=== PATIENT | female | born 1985 | race Two or more races ===

== ENCOUNTER 2017-05-21 10:42 | Day surgery (SDC) | payer BC ==
[2017-05-20 13:55] VITALS: BMI 31.3
[~2017-05-21 10:42] MED LIST: LACTATED RINGERS 1,000 ML IV SCH
[2017-05-21 11:17] VITALS: TEMP 98.1
[2017-05-21] MEDS ORDERED: LIDOCAINE 1% 20 ML VIAL (10MG/ML) FOR IV START INTRADERMA ONE (11:20)
[2017-05-21] MEDS ORDERED: LIDOCAINE 1% INJ 10MG/ML (20 ML MDV) ONE (11:58)
[2017-05-21] MEDS ORDERED: PROPOFOL 10 MG/ML 20 ML VIAL IV ONE (11:58)
--- NOTE | 2017-05-21 12:13 | P.PCN ---
Date of Procedure: 05/21/17 Procedure(s) Performed: BRIEF HISTORY: Patient is a 31-year-old pleasant, white female, scheduled for an elective colonoscopy as a part of evaluation of chronic diarrhea for the last 6 months duration. She has stool studies have been negative. PROCEDURE PERFORMED: Colonoscopy with random biopsies. PREOPERATIVE DIAGNOSIS: Diarrhea of 6 months duration.. IV sedation per Anesthesia. PROCEDURE: After informed consent was obtained, the patient, was brought into the endoscopy unit. IV sedation was administered by Anesthesia under continuous monitoring. Digital rectal examination was normal. Initially the Olympus CF- 160 flexible video colonoscope was then inserted in the rectum, gradually advanced into the cecum without any difficulty. Careful examination was performed as the scope was gradually being withdrawn. Ileocecal valve and the appendiceal orifice were visualized and appeared normal. Prep was excellent. Terminal ileum appeared normal. Mucosa of the cecum, ascending colon, transverse colon, descending colon, sigmoid colon, and rectum appeared normal. Random biopsies were done from ascending and descending colon to rule out microscopic/collagenous colitis. Retroflexion was performed in the rectum and no lesions were seen. The patient tolerated the procedure well. IMPRESSION: Normal-appearing colon from rectum to cecum with no evidence of colitis or colorectal neoplasia.. RECOMMENDATIONS: Findings of this examination were discussed with the patient as well as her family. She was advised to follow with the biopsy results. She will be seen in office in 3-4 weeks.
[2017-05-21 12:21] VITALS: RESP 16
[2017-05-21 12:47] VITALS: BP 110/71
[2017-05-21 12:59] VITALS: PULSE 60
[2017-05-21 13:28] LABS: ALT 36 U/L (9-52); AST 36 U/L (14-36); Albumin 3.9 g/dL (3.5-5.0); Alkaline Phosphatase 44 U/L (38-126); Anion Gap 9 mmol/L; Blood Urea Nitrogen 13 mg/dL (7-17); C Reactive Protein 11.2 mg/L (<10.0); Calcium 9.4 mg/dL (8.4-10.2); Carbon Dioxide 24 mmol/L (22-30); Chloride 107 mmol/L (98-107); Glucose 73 mg/dL (74-99); Potassium 4.5 mmol/L (3.5-5.1); Sodium 140 mmol/L (137-145); Total Bilirubin 0.7 mg/dL (0.2-1.3); Total Protein 6.6 g/dL (6.3-8.2)
[2017-05-21 13:30] LABS: HCT 39.3 % (34.0-46.0); MCH 30.6 pg (25.0-35.0); MCV 92.6 fL (80.0-100.0); Mean Platelet Volume 7.3; Platelet Count 276 k/uL (150-450); RBC 4.24 m/uL (3.80-5.40); RDW 12.4 % (11.5-15.5); WBC 8.8 k/uL (3.8-10.6)
[2017-05-21 14:34] LABS: Erythrocyte Sedimentation Rate 13 mm/hr (0-20)
[2017-05-21 20:53] LABS: Gliadin AB IgA, Unit 0.3 U/mL
== END 2017-05-21 13:39 | disposition home or self-care (01) ==
LOC: ORWHC2ENDO 10:42
PROVIDERS: ATTEND Internal Medicine Gastroenterology
DX: K52.9 Noninfective gastroenteritis and colitis, unspecified (principal); E07.9 Disorder of thyroid, unspecified; F32.9 Major depressive disorder, single episode, unspecified; Z79.890 Hormone replacement therapy; Z79.899 Other long term (current) drug therapy; Z88.5 Allergy status to narcotic agent
CPT/HCPCS: 81025; 88305; 80053; 85652; 85027; 86140; 83516 ×4; 45380; J2001; J2704

== ENCOUNTER → 2018-05-10 | Outpatient (CLI) | payer BC ==
[2018-05-10 14:02] LABS: Basophils # (A) 0.1 k/uL (0-0.2); Basophils % (A) 1 %; Eosinophils # (A) 0.2 k/uL (0-0.7); Eosinophils % (A) 2 %; HCT 44.2 % (34.0-46.0); HGB 13.9 gm/dL (11.4-16.0); Lymphocytes # (A) 3.5 k/uL (1.0-4.8); Lymphocytes % (A) 37 %; MCH 30.1 pg (25.0-35.0); MCHC 31.5 g/dL (31.0-37.0); MCV 95.5 fL (80.0-100.0); Mean Platelet Volume 6.2; Monocytes # (A) 0.3 k/uL (0-1.0); Monocytes % (A) 3 %; Neutrophils # (A) 5.4 k/uL (1.3-7.7); Neutrophils % (A) 57 %; Platelet Count 322 k/uL (150-450); RBC 4.63 m/uL (3.80-5.40); RDW 12.4 % (11.5-15.5); WBC 9.6 k/uL (3.8-10.6)
[2018-05-10 19:55] LABS: Albumin 4.6 g/dL (3.80-4.90); Albumin/Globulin Ratio 2.19 (1.60-3.17); Anion Gap 7.8 mmol/L (4.00-12.00); Calcium 9.5 mg/dL (8.7-10.3); Carbon Dioxide 24.2 mmol/L (21.6-31.8); Globulin 2.1 g/dL (1.6-3.3); LDL Cholesterol,Calculated 113.2 mg/dL (0.0-131.0); Potassium 4.1 mmol/L (3.5-5.5); Total Bilirubin 0.5 mg/dL (0.3-1.2); Total Protein 6.7 g/dL (6.2-8.2); VLDL Calculation 31.8 mg/dL (5.00-40.00)
== END ==
LOC: LABWHC1 12:32
PROVIDERS: ATTEND Family Medicine
DX: Z00.00 Encounter for general adult medical examination without abnormal findings (principal)
CPT/HCPCS: 36415; 80053; 80061; 84443; 85025

== ENCOUNTER 2018-10-07 22:15 | Emergency (ER) | payer OTHER, BC ==
[2018-10-07 22:27] VITALS: BP 105/59; PULSE 74; RESP 16; TEMP 98.4
--- NOTE | 2018-10-07 22:53 | XR ---
EXAM: XR Right Knee, 3 views CLINICAL HISTORY: ITS.REASON XR Reason: fall TECHNIQUE: Three views of the right knee. COMPARISON: No relevant prior studies available. FINDINGS: Bones/joints: No acute fracture. Soft tissues: No radiopaque foreign body. IMPRESSION: No acute fracture.
[2018-10-07] MEDS ORDERED: ACETAMINOPHEN TAB 325 MG TAB PO STA (23:05)
--- NOTE | 2018-10-07 23:07 | ED ---
Lower Extremity Injury HPI - General Chief Complaint: Extremity Injury, Lower Stated Complaint: Fall, knee pain, [facility] Time Seen by Provider: 10/07/18 22:30 Source: patient Mode of arrival: wheelchair Limitations: no limitations - History of Present Illness Initial Comments: 33-year-old female who is currently 20 weeks presenting today for chief complaint of right knee pain after falling at work. Patient states that she slipped on a wet floor at work. She states that she hit the anterior aspect of her knee. She states that there is no bruising or worsen if can swelling. Patient states the pain increases with flexing and extending the knee. Patient states she is able to walk, this increases the pain. Patient denies any pain at the hip or ankle. Patient denies any foot pain. Patient states that she caught herself she did not hit her abdomen. Denies any abdominal pain. Patient denies any pain of the wrist bilaterally or upper extremities. Remaining review of system negative no other complaints upon arrival patient appears well no signs acute distress ambulatory. - Related Data Home Medications Medication Instructions Recorded Confirmed Levothyroxine Sodium [Synthroid] 75 mcg PO DAILY 11/11/14 05/20/17 Pnv,Calcium 72/Iron/Folic Acid 1 each PO DAILY 11/11/14 05/20/17 [ Plus Tablet] Citalopram Hydrobromide 20 mg PO DAILY 05/20/17 05/20/17 [Citalopram HBr] Allergies Allergy/AdvReac Type Severity Reaction Status Date / Time butorphanol [From Stadol] Allergy Unknown Verified 10/07/18 22:27 Review of Systems ROS Statement: Those systems with pertinent positive or pertinent negative responses have been documented in the HPI. ROS Other: All systems not noted in ROS Statement are negative. Past Medical History Past Medical History: GERD/Reflux, Hyperlipidemia, Thyroid Disorder Additional Past Medical History / Comment(s): migraines, refux during , diarrhea, hx kidney stones during pregnacy History of Any Multi-Drug Resistant Organisms: None Reported Past Surgical History: Breast Surgery, Section Additional Past Surgical History / Comment(s): rodrigue breast reduction, carpal tunnel surgery Past Anesthesia/Blood Transfusion Reactions: Motion Sickness Additional Past Anesthesia/Blood Transfusion Reaction / Comment(s): had epidural for C/S- "had cholinergic episode requiring atropine during epidural". was unresponsive and slept right through labor. possibly from stadol per pt. Past Psychological History: Depression Smoking Status: Never smoker Past Alcohol Use History: None Reported Past Drug Use History: None Reported - Past Family History Mother Family Medical History: No Reported History Father Family Medical History: Cancer, Deep Vein Thrombosis (DVT), Myocardial Infarction ([place]) Additional Family Medical History / Comment(s): . General Exam - General Exam Comments Initial Comments: General: The patient is awake and alert, in no distress, and does not appear acutely ill. Eye: Pupils are equal, round and reactive to light, extra-ocular movements are intact. No nystagmus. There is normal conjunctiva bilaterally. No signs of icterus. No raccoon or Campos sign appreciated. Cardiovascular: There is a regular rate and rhythm. No murmur, rub or gallop is appreciated. Respiratory: Lungs are clear to auscultation, respirations are non-labored, breath sounds are equal. No wheezes, stridor, rales, or rhonchi. Musculoskeletal: Upon inspection of the knees bilaterally. There is no abrasions or lacerations. There is mild soft tissue swelling over the anterior right knee. Otherwise patient has no posterior tenderness. Only tender to palpation over the anterior knee. No noted gross deformity. Strength preserved at the knee joint hip and ankles bilaterally equal sensation intact the proximal distal to injury site. Dorsalis pedis pulses are equal bilaterally +2. No evidence of footdrop. Neurological: A&O x 3. CN II-XII intact grossly, There are no obvious motor or sensory deficits. Coordination appears grossly intact. Speech is normal. Skin: Skin is warm and dry and no rashes or lesions are noted. Psychiatric: Cooperative, appropriate mood & affect, normal judgment. Limitations: no limitations Course Vital Signs 10/07/18 22:21 Temperature 98.4 F Pulse Rate 74 Respiratory 16 Rate Blood Pressure 105/59 O2 Sat by Pulse 98 Oximetry Medical Decision Making - Medical Decision Making Very pleasant 33-year-old female. 20 weeks . Imaging studies obtained of right knee patient was shielded. No acute osseous process noted. Patient has intact extensor mechanism. No neurovascular deficits. No noted laxity. Patient appears well. No other complaints or injuries. Denies abdominal pain. No abdominal trauma. At this time feel patient is stable for discharge with outpatient primary care follow-up. If knee pain persists or she feels laxity in the knee joint I recommended orthopedic evaluation. Otherwise at this time after reviewing imaging studies of attending provider with the patient is stable for discharge. Patient is placed in an Domenic bandage given Rice instructions and return parameters were discussed and patient was discharged ambulatory appearing well Disposition Clinical Impression: Right anterior knee pain, Fall Disposition: HOME SELF-CARE Condition: Good Instructions (If sedation given, give patient instructions): Knee Pain (ED), R.I.C.E. Treatment (ED) Additional Instructions: Please use medication as discussed. Please follow-up with family doctor in the next 2 days. Rest, ice and elevate knee as discussed. Please return to emergency room if the symptoms increase or worsen or for any other concerns. Is patient prescribed a controlled substance at d/c from ED?: No Referrals: Sandy Felton MD [Primary Care Provider] - 1-2 days Time of Disposition: 23:06
== END 2018-10-07 23:35 | disposition home or self-care (01) ==
LOC: EC 22:15
DX: O99.89 Other specified diseases and conditions complicating pregnancy, childbirth and the puerperium (principal); M25.561 Pain in right knee; O99.282 Endocrine, nutritional and metabolic diseases complicating pregnancy, second trimester; E07.9 Disorder of thyroid, unspecified; O99.342 Other mental disorders complicating pregnancy, second trimester; F32.9 Major depressive disorder, single episode, unspecified; Z79.890 Hormone replacement therapy; Z79.899 Other long term (current) drug therapy; Z88.5 Allergy status to narcotic agent; W01.0XXA Fall on same level from slipping, tripping and stumbling without subsequent striking against object, initial encounter; Y92.69 Other specified industrial and construction area as the place of occurrence of the external cause; Y99.0 Civilian activity done for income or pay; Z3A.20 20 weeks gestation of pregnancy
CPT/HCPCS: 99283

== ENCOUNTER → 2018-12-30 | Outpatient (CLI) | payer BC ==
--- NOTE | 2019-01-07 13:54 | HM ---
HOLTER MONITOR REPORT A 24 HOUR HOLTER REPORT: Patient in her diary had 3 episodes of palpitations that she documented at 9:32 am, 10:30 am and 10:38 am. Predominant rhythm was sinus with average heart rate of 90 beats per minute. There is no evidence of any significant SVT, VT, or bradyarrhythmia. At the time she complained of having palpitation, she was in a sinus rhythm and sinus tachycardia. No significant arrhythmia was detected when she felt palpitations. There was no bradyarrhythmia of significance. IMPRESSION: Predominant sinus. There was no correlation of any arrhythmia when she felt palpitations on three occasions. Premature atrial contractions and premature ventricular contractions are noted very rarely and very infrequently. There is no evidence to suggest any bradyarrhythmia. MMODL / IJN: [id number] /
== END | disposition home or self-care (01) ==
LOC: RADECHMAIN 12:17
PROVIDERS: ATTEND Obstetrics & Gynecology
DX: O99.412 Diseases of the circulatory system complicating pregnancy, second trimester (principal); R00.0 Tachycardia, unspecified
CPT/HCPCS: 93225; 93226

== ENCOUNTER 2019-01-03 18:17 | Emergency (ER) | payer BC, OTHER ==
[2019-01-03 18:43] VITALS: BP 127/67; PULSE 95; RESP 18; TEMP 98.6
[2019-01-03] MEDS ORDERED: ACETAMINOPHEN TAB 325 MG TAB PO STA (18:51)
[2019-01-03] MEDS ORDERED: LIDOCAINE 1% INJ 10MG/ML (20 ML MDV) SQ ONE (18:51)
[2019-01-03] MEDS ORDERED: AMOXIC-POT CLAV 875MG STARTER 2 EACH TABLET PO STA (18:51)
--- NOTE | 2019-01-03 18:59 | ED ---
Animal Bite HPI - General Chief Complaint: Animal Bite Stated Complaint: Dog bite on face/33 wks Time Seen by Provider: 01/03/19 18:45 Source: patient, RN notes reviewed Mode of arrival: ambulatory Limitations: no limitations - History of Present Illness Initial Comments: 33-year-old female presents emergency Department chief complaint of dog bite. 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 Patient states that the dog she was examining her in the face. Patient has some puncture wounds to her nose, ear lip laceration the upper aspect, chin laceration. Patient states her tetanus is updated one month ago. Patient states she is currently 33 weeks . Patient denies any ALLERGIES to antibiotics. - Related Data Home Medications Medication Instructions Recorded Confirmed Levothyroxine Sodium [Synthroid] 75 mcg PO DAILY 11/11/14 05/20/17 Pnv,Calcium 72/Iron/Folic Acid 1 each PO DAILY 11/11/14 05/20/17 [ Plus Tablet] Citalopram Hydrobromide 20 mg PO DAILY 05/20/17 05/20/17 [Citalopram HBr] Previous Rx's Medication Instructions Recorded Amoxicillin/Potassium Clav 1 tab PO Q12HR #20 tab 01/03/19 [Augmentin 875-125 Tablet] Allergies Allergy/AdvReac Type Severity Reaction Status Date / Time butorphanol [From Stadol] Allergy Unknown Verified 01/03/19 18:43 Review of Systems ROS Statement: Those systems with pertinent positive or pertinent negative responses have been documented in the HPI. ROS Other: All systems not noted in ROS Statement are negative. Past Medical History Past Medical History: GERD/Reflux, Hyperlipidemia, Thyroid Disorder Additional Past Medical History / Comment(s): migraines, refux during , diarrhea, hx kidney stones during pregnacy History of Any Multi-Drug Resistant Organisms: None Reported Past Surgical History: Breast Surgery, Section Additional Past Surgical History / Comment(s): rodrigue breast reduction, carpal tunnel surgery Past Anesthesia/Blood Transfusion Reactions: Motion Sickness Additional Past Anesthesia/Blood Transfusion Reaction / Comment(s): had epidural for C/S- "had cholinergic episode requiring atropine during epidural". was unresponsive and slept right through labor. possibly from stadol per pt. Past Psychological History: Depression Smoking Status: Never smoker Past Alcohol Use History: None Reported Past Drug Use History: None Reported - Past Family History Mother Family Medical History: No Reported History Father Family Medical History: Cancer, Deep Vein Thrombosis (DVT), Myocardial Infarction ([place]) Additional Family Medical History / Comment(s): . General Exam Limitations: no limitations General appearance: alert, in no apparent distress Head exam: Present: atraumatic, normocephalic, normal inspection Eye exam: Present: normal appearance, PERRL, EOMI. Absent: scleral icterus, conjunctival injection, periorbital swelling ENT exam: Present: mucous membranes moist, TM's normal bilaterally, normal external ear exam, other (Nasal bridge there are multiple puncture wounds with no active bleeding, chin there is a 1 cm semicircular laceration). Absent: normal exam, normal oropharynx (Upper inner aspect of the lip there is an irregular 1 cm laceration) Neck exam: Present: normal inspection, full ROM. Absent: tenderness, meningismus, lymphadenopathy Respiratory exam: Present: normal lung sounds bilaterally. Absent: respiratory distress, wheezes, rales, rhonchi, stridor Cardiovascular Exam: Present: regular rate, normal rhythm, normal heart sounds. Absent: systolic murmur, diastolic murmur, rubs, gallop, clicks Neurological exam: Present: alert, oriented X3, CN II-XII intact Skin exam: Present: warm, dry, intact, normal color. Absent: rash Course Vital Signs 01/03/19 18:37 Temperature 98.6 F Pulse Rate 95 Respiratory 18 Rate Blood Pressure 127/67 O2 Sat by Pulse 98 Oximetry Procedures - Laceration Laceration #1 Consent Obtained: verbal consent Indication: laceration Site: lip Size (cm): 2 Description: stellate, irregular Anesthetic Used: lidocaine 1% Anesthesia Technique: local infiltration Amount (mls): 2 Pre-repair: wound explored, irrigated extensively Type of Sutures: other (Rapid repid) Size of Sutures: 5-0 Technique: simple, interrupted Patient Tolerated Procedure: well, no complications Laceration #2 Description: stellate, irregular Size of Sutures: other (exofin dermal glue) Medical Decision Making - Medical Decision Making Patient's lacerations were cleaned, closed with sutures in the upper lip, Zofran on the chin patient was discharged with Augmentin. Disposition Clinical Impression: Dog bite, Facial laceration Disposition: HOME SELF-CARE Instructions (If sedation given, give patient instructions): Animal Bite (ED) Additional Instructions: Please return to the Emergency Department if symptoms worsen or any other concerns. Prescriptions: Amoxicillin/Potassium Clav [Augmentin 875-125 Tablet] 1 tab PO Q12HR #20 tab Is patient prescribed a controlled substance at d/c from ED?: No Referrals: Sandy Felton MD [Primary Care Provider] - 1-2 days Time of Disposition: 20:07
[2019-01-03] MEDS ORDERED: TOPICAL SKIN ADHESIVE 1 EACH AMP TOPICAL ONE (19:04)
[2019-01-03] MEDS ORDERED: LIDOCAINE 2% GEL 30 ML TUBE TOPICAL ONE (19:08)
== END 2019-01-03 20:20 | disposition home or self-care (01) ==
LOC: EC 18:17
DX: O9A.213 Injury, poisoning and certain other consequences of external causes complicating pregnancy, third trimester (principal); S01.25XA Open bite of nose, initial encounter; S01.551A Open bite of lip, initial encounter; S01.85XA Open bite of other part of head, initial encounter; O99.283 Endocrine, nutritional and metabolic diseases complicating pregnancy, third trimester; E07.9 Disorder of thyroid, unspecified; O99.343 Other mental disorders complicating pregnancy, third trimester; F32.9 Major depressive disorder, single episode, unspecified; Z88.5 Allergy status to narcotic agent; Z79.890 Hormone replacement therapy; Z79.899 Other long term (current) drug therapy; Z98.890 Other specified postprocedural states; Z3A.33 33 weeks gestation of pregnancy; W54.0XXA Bitten by dog, initial encounter; Y93.89 Activity, other specified; Y92.69 Other specified industrial and construction area as the place of occurrence of the external cause; Y99.0 Civilian activity done for income or pay
CPT/HCPCS: 99283; 12011; J2001

== ENCOUNTER 2019-01-06 14:21 | Emergency (ER) | payer BC, OTHER ==
[2019-01-06 14:29] VITALS: BP 130/78; PULSE 94; RESP 18; TEMP 97.8
--- NOTE | 2019-01-06 15:00 | ED ---
General Adult HPI - General Chief complaint: Extremity Injury, Upper Stated complaint: finger injury-[facility] Time Seen by Provider: 01/06/19 14:29 Source: patient, RN notes reviewed, old records reviewed Mode of arrival: ambulatory Limitations: no limitations - History of Present Illness Initial comments: 33-year-old female patient presents to the chief complaint of hand pain. Patient was seen approximately 3 days ago for a dog bite. Patient was bitten in the face. These wounds were reportedly irrigated, closed. Patient not having any complaints regarding the bite. Patient does report that she is now having pain at the distal aspect of the fourth digit on her right hand. Patient reports that during the reported dog bite she fell to the ground an outstretched arm. Patient has full range of motion reports some swelling at the DIP joint. Also requests recheck of wounds. Denies any erythema, drainage, systemic complaints. Systemic: Pt denies fatigue, fever/chills, rash. Pt denies weakness, night sweats, weight loss. Neuro: Pt denies headache, visual disturbances, syncope or pre-syncope. HEENT: Pt denies ocular discharge or irritation, otalgia, rhinorrhea, pharyngitis or notable lymphadenopathy. Cardiopulmonary: Pt denies chest pain, SOB, heart palpitations, dyspnea on exertion. Abdominal/GI: Pt denies abdominal pain, n/v/d. : Pt denies dysuria, burning w/ urination, frequency/urgency. Denies new onset urinary or bowel incontinence. MSK: Pt denies myalgia, loss of strength or function in extremities. Neuro: Pt denies new onset weakness, paresthesias. - Related Data Home Medications Medication Instructions Recorded Confirmed Levothyroxine Sodium [Synthroid] 75 mcg PO DAILY 11/11/14 01/06/19 Pnv,Calcium 72/Iron/Folic Acid 1 tab PO HS 11/11/14 01/06/19 [ Plus Tablet] Acetaminophen Tab [Tylenol Tab] 500 mg PO BID 01/06/19 01/06/19 Ferrous Sulfate [Feosol] 325 mg PO HS 01/06/19 01/06/19 Sertraline [Zoloft] 150 mg PO DAILY 01/06/19 01/06/19 Previous Rx's Medication Instructions Recorded Amoxicillin/Potassium Clav 1 tab PO Q12HR #20 tab 01/03/19 [Augmentin 875-125 Tablet] Allergies Allergy/AdvReac Type Severity Reaction Status Date / Time butorphanol [From Stadol] Allergy PASSED OUT Verified 01/06/19 14:34 Review of Systems ROS Statement: Those systems with pertinent positive or pertinent negative responses have been documented in the HPI. ROS Other: All systems not noted in ROS Statement are negative. Past Medical History Past Medical History: GERD/Reflux, Hyperlipidemia, Thyroid Disorder Additional Past Medical History / Comment(s): migraines, refux during , diarrhea, hx kidney stones during pregnacy History of Any Multi-Drug Resistant Organisms: None Reported Past Surgical History: Breast Surgery, Section Additional Past Surgical History / Comment(s): rodrigue breast reduction, carpal tunnel surgery Past Anesthesia/Blood Transfusion Reactions: Motion Sickness Additional Past Anesthesia/Blood Transfusion Reaction / Comment(s): had epidural for C/S- "had cholinergic episode requiring atropine during epidural". was unresponsive and slept right through labor. possibly from stadol per pt. Past Psychological History: Depression Smoking Status: Never smoker Past Alcohol Use History: None Reported Past Drug Use History: None Reported - Past Family History Mother Family Medical History: No Reported History Father Family Medical History: Cancer, Deep Vein Thrombosis (DVT), Myocardial Infarction ([place]) Additional Family Medical History / Comment(s): . General Exam Limitations: no limitations Course Vital Signs 01/06/19 01/06/19 14:25 15:11 Temperature 97.8 F Pulse Rate 94 Respiratory 18 18 Rate Blood Pressure 130/78 O2 Sat by Pulse 98 Oximetry Medical Decision Making - Medical Decision Making 33-year-old female patient presents ED chief complaint of recheck of dog bite wound as well as hand pain in the hand. Pt VSS, afebrile. Physical exam displayed: Fourth DIP joint of right hand mildly tender and swollen. No erythema. Range of motion is intact of all digits MCP PIP/DIP joints. Sensation intact. Capillary refill less than 2 seconds. No snuffbox tenderness. Healing bites noted on lips, anterior nose region. Non- erythematous, no discharge, no signs of infection, no streaking. Plain film of hand is negative. Patient placed in a straight finger splint. Patient dischar ged with outpatient follow-up with primary care provider next week. Will return here immediately if signs of infection develop. If condition worsens in any way. Case discussed with Dr. Kumar. Disposition Clinical Impression: Encounter for wound re-check, Finger pain, right Disposition: HOME SELF-CARE Condition: Stable Instructions (If sedation given, give patient instructions): Finger Sprain (ED) Additional Instructions: Follow-up with primary care provider next week. Follow up with orthopedic consult of symptoms and hand persists. Monitor for signs and symptoms of infection of dog bites. If any of these develop return immediately to ER. Please monitor for signs and symptoms of infection including: redness, warmth, drainage, discharge. Please return to ED if these signs or symptoms occur, new signs or symptoms develop or if condition worsens in anyway. Is patient prescribed a controlled substance at d/c from ED?: No Referrals: Sandy Felton MD [Primary Care Provider] - 1-2 days Juan C Appiah DO [Medical Doctor] - 1-2 days
--- NOTE | 2019-01-06 15:01 | XR ---
EXAMINATION TYPE: XR hand complete RT DATE OF EXAM: 01/06/2019 CLINICAL HISTORY: pain TECHNIQUE: Frontal, lateral and oblique images of the right hand are obtained. COMPARISON: None. FINDINGS: There is no acute fracture/dislocation evident. The joint spaces appear within normal limi ts. The overlying soft tissue appears unremarkable. IMPRESSION: There is no acute fracture or dislocation ICD 10 NO FRACTURE, INITIAL EVALUATION
--- NOTE | 2019-01-06 15:28 | ED ---
Medical Decision Making - Medical Decision Making Constitutional: NAD, AOX3, Pt has pleasant affect. HEENT: NC/AT, trachea midline, neck supple, no lymphadenopathy. Posterior pharynx non erythematous, without exudates. External ears appear normal, without discharge. Mucous membranes moist. Eyes PERRLA, EOM intact. There is no scleral icterus. No pallor noted. Cardiopulmonary: RRR, no murmurs, rubs or gallops, no JVD noted. Lungs CTAB in anterior and posterior [place]. No peripheral edema. Abdominal exam: Abdomen soft and non-distended. Abdomen non-tender to palpation in all 4 quadrants. Bowel sounds active in LLQ. No hepatosplenomegaly. No ecchymosis Neuro: CN II-XII grossly intact. No nuchal rigidity. No raccon eyes, no gilmore sign, no hemotympanum. No cervical spinal tenderness. MSK: Fourth DIP joint of right hand mildly tender and swollen. No erythema. Range of motion is intact of all digits MCP PIP/DIP joints. Sensation intact. Capillary refill less than 2 seconds. No snuffbox tenderness. No posterior calf tenderness bilaterally, homans sign negative bilaterally. Posterior tibialis and radial pulse +2 bilaterally. Sensation intact in upper and lower extremities. Full active ROM in upper and lower extremities, 5/5 stregnth. Derm: Healing bites noted on lips, anterior nose region. Non-erythematous, no discharge, no signs of infection, no streaking. Disposition Clinical Impression: Encounter for wound re-check, Finger pain, right Disposition: HOME SELF-CARE Condition: Stable Instructions (If sedation given, give patient instructions): Finger Sprain (ED) Additional Instructions: Follow-up with primary care provider next week. Follow up with orthopedic consult of symptoms and hand persists. Monitor for signs and symptoms of infection of dog bites. If any of these develop return immediately to ER. Please monitor for signs and symptoms of infection including: redness, warmth, drainage, discharge. Please return to ED if these signs or symptoms occur, new signs or symptoms develop or if condition worsens in anyway. Is patient prescribed a controlled substance at d/c from ED?: No Referrals: Sandy Felton MD [Primary Care Provider] - 1-2 days Juan C Appiah DO [Medical Doctor] - 1-2 days
== END 2019-01-06 15:29 | disposition home or self-care (01) ==
LOC: EC 14:21
DX: S01.551D Open bite of lip, subsequent encounter (principal); S01.25XD Open bite of nose, subsequent encounter; M79.644 Pain in right finger(s); M79.89 Other specified soft tissue disorders; E07.9 Disorder of thyroid, unspecified; F32.9 Major depressive disorder, single episode, unspecified; Z88.5 Allergy status to narcotic agent; Z79.890 Hormone replacement therapy; Z79.891 Long term (current) use of opiate analgesic; Z79.899 Other long term (current) drug therapy; W54.0XXD Bitten by dog, subsequent encounter; W18.39XA Other fall on same level, initial encounter; Y92.69 Other specified industrial and construction area as the place of occurrence of the external cause; Y99.0 Civilian activity done for income or pay
CPT/HCPCS: 99284

== ENCOUNTER 2019-02-17 10:17 | Inpatient (IN) | payer BC ==
[2019-02-16 09:15] VITALS: BMI 31.3
[2019-02-17] MEDS ORDERED: CITRIC ACID-SODIUM CITRATE 15 ML CUP PO ONE (10:30)
[2019-02-17] MEDS: LACTATED RINGERS 1,000 ML IV SCH (11:13)
[2019-02-17 11:19] LABS: Glucose,Whole Blood 73 mg/dL (75-99)
[2019-02-17 11:39] LABS: Basophils % (A) 0 %; Eosinophils # (A) 0.1 k/uL (0-0.7); Eosinophils % (A) 1 %; HCT 37.4 % (34.0-46.0); HGB 12.2 gm/dL (11.4-16.0); Lymphocytes # (A) 2.1 k/uL (1.0-4.8); Lymphocytes % (A) 24 %; MCH 30.7 pg (25.0-35.0); MCHC 32.7 g/dL (31.0-37.0); MCV 93.8 fL (80.0-100.0); Monocytes # (A) 0.3 k/uL (0-1.0); Monocytes % (A) 4 %; Neutrophils # (A) 6.2 k/uL (1.3-7.7); Neutrophils % (A) 70 %; Platelet Count 213 k/uL (150-450); RBC 3.99 m/uL (3.80-5.40); RDW 15.1 % (11.5-15.5); WBC 8.8 k/uL (3.8-10.6)
[2019-02-17] MEDS ORDERED: KETOROLAC 30 MG/ML 1 ML VIAL ONE (12:01)
[2019-02-17] MEDS ORDERED: ePHEDrine SULFATE/0.9% NACL/PF 50 MG/5 ML SYRINGE IV ONE (12:01)
[2019-02-17] MEDS ORDERED: .MORPHINE SULFATE (INJ) 10 MG/ML SYRINGE ONE (12:01)
[2019-02-17] MEDS ORDERED: ONDANSETRON 4 MG/2 ML VIAL ONE (12:01)
[2019-02-17] MEDS ORDERED: MORPHINE SULFATE (PF) 0.3 MG/0.3 ML SYR ONE (12:01)
[2019-02-17] MEDS ORDERED: LACTATED RINGERS 1,000 ML BAG IV ONE (12:01)
[2019-02-17] MEDS ORDERED: OXYTOCIN 10 UNIT/ML 1 ML VIAL ONE (12:01)
--- NOTE | 2019-02-17 12:03 | P.HPOB ---
History of Present Illness H&P Date: 02/17/19 Chief Complaint: 39+ weeks, previous section, requesting repeat The patient is a 33-year-old 2 para 1001 who presents to the hospital at 39-2/7 weeks for repeat low transverse section. Her first resulted in a primary low-transverse section for arrest of dilation and descent. Her procedure was complicated by either a medication reaction or anesthetic reaction and was presumed to be a college anergic crisis which resolved with medications. This has been relatively uncomplicated though she has been diagnosed as a gestational diabetic and has had relatively reasonable blood sugar control. There were no other complications. Group B strep status is negative. Obstetrical history: 2 para 1001 with 1 previous section as noted above, complications as noted above. Current statistics are listed in history present illness. EDC is 02/22/2019 established by a early ultrasound. Laboratory workup demonstrates a blood type of A+ with a negative antibody screen. Remainder of the laboratory workup was within normal limits. One hour Glucola was elevated and followed by an abnormal 3 hour glucose tolerance test. Group B strep status is negative. Gynecologic history: Unremarkable with no history of any infections to include STDs. Review of Systems Review of systems is confined to history of present illness. Past Medical History Past Medical History: GERD/Reflux, Hyperlipidemia, Thyroid Disorder Additional Past Medical History / Comment(s): migraines, refux during , diarrhea, hx kidney stones during pregnacy History of Any Multi-Drug Resistant Organisms: None Reported Past Surgical History: Breast Surgery, Section, Orthopedic Surgery Additional Past Surgical History / Comment(s): rodrigue breast reduction, carpal tunnel surgery-BILAT Past Anesthesia/Blood Transfusion Reactions: Motion Sickness Additional Past Anesthesia/Blood Transfusion Reaction / Comment(s): had epidural for C/S- "had cholinergic episode requiring atropine during epidural". was unresponsive and slept right through labor. possibly from stadol per pt. Past Psychological History: Depression Additional Psychological History / Comment(s): post Smoking Status: Never smoker Past Alcohol Use History: None Reported Past Drug Use History: None Reported - Past Family History Mother Family Medical History: No Reported History Father Family Medical History: Cancer, Deep Vein Thrombosis (DVT), Myocardial Infarction ([place]) Additional Family Medical History / Comment(s): . Medications and Allergies Home Medications Medication Instructions Recorded Confirmed Type Levothyroxine Sodium [Synthroid] 75 mcg PO DAILY 11/11/14 02/16/19 History Pnv,Calcium 72/Iron/Folic Acid 1 tab PO HS 11/11/14 02/16/19 History [ Plus Tablet] Ferrous Sulfate [Feosol] 325 mg PO HS 01/06/19 02/16/19 History Sertraline [Zoloft] 150 mg PO DAILY 01/06/19 02/16/19 History Allergies Allergy/AdvReac Type Severity Reaction Status Date / Time butorphanol [From Stadol] Allergy PASSED OUT Verified 02/16/19 09:09 Exam Vital Signs Temp Pulse Resp BP Pulse Ox 02/17/19 10:29 97.7 F 77 16 125/62 99 Intake and Output 02/16/19 02/17/19 02/17/19 22:59 06:59 14:59 Other: Weight 72.575 kg In general, this is a well-developed, well-nourished female in no acute distress. Her heart has a regular rhythm and rate without murmur. Her lungs are clear to auscultation bilaterally in all [place]. Her abdomen is gravid, nondistended, has normal active bowel sounds, is soft, nontender, and without any palpable masses aside from uterine fundus. Her extremities are without any cyanosis, clubbing, or significant edema and are nontender to palpation bilaterally. Digital cervical examination is deferred. Results Result Diagrams: 02/17/19 11:04 Abnormal Lab Results - Last 24 Hours (Table) 02/17/19 Range/Units 11:18 POC Glucose (mg/dL) 73 L (75-99) mg/dL Assessment and Plan (1) Previous section Current Visit: Yes Status: Acute Code(s): Z98.891 - HISTORY OF UTERINE SCAR FROM PREVIOUS SURGERY SNOMED Code(s): 190551169 (2) Term Current Visit: Yes Status: Acute Code(s): Z34.80 - ENCOUNTER FOR SUPRVSN OF NORMAL , UNSP TRIMESTER SNOMED Code(s): 17989591 Plan: The patient is to be taken the operating room for repeat low transverse section. The risks and complications of the procedure have been thoroughly discussed and she has understood and agreed to proceed. Anesthesia has been made aware of the previous complications and is prepared to manage similar happenings.
[2019-02-17] MEDS ORDERED: NALOXONE 0.4 MG/ML 1 ML VIAL IV PRN (12:59)
[2019-02-17] MEDS ORDERED: KETOROLAC 30 MG/ML 1 ML VIAL IVP PRN (12:59)
[2019-02-17] MEDS ORDERED: HYDROmorphone 0.5 MG/0.5 ML SYRINGE IVP PRN (12:59)
[2019-02-17] MEDS ORDERED: diphenhydrAMINE 50 MG/ML 1 ML VIAL IVP PRN ×3 (12:59→13:00)
[2019-02-17] MEDS ORDERED: ONDANSETRON 4 MG/2 ML VIAL IVP PRN (12:59)
[2019-02-17] MEDS ORDERED: METOCLOPRAMIDE 5 MG/ML 2 ML VIAL IVP PRN (13:00)
[2019-02-17] MEDS ORDERED: diphenhydrAMINE 50 MG CAP PO PRN (13:00)
[2019-02-17] MEDS ORDERED: ZOLPIDEM 5 MG TAB PO PRN (13:00)
[2019-02-17] MEDS ORDERED: HYDROcodone/APAP 5-325MG 1 EACH TAB PO PRN (13:00)
[2019-02-17] MEDS ORDERED: diphenhydrAMINE 25 MG CAP PO PRN (13:00)
[2019-02-17] MEDS ORDERED: LANOLIN CREAM 5 GM TUBE TOPICAL PRN (13:00)
[2019-02-17] MEDS ORDERED: OXYTOCIN 20 UNITS/1000 ML NS 1,000 ML IV SCH (13:00)
[2019-02-17] MEDS ORDERED: HYDROcodone/APAP 7.5-325MG 1 EACH TAB PO PRN (13:00)
--- NOTE | 2019-02-17 13:09 | P.OP ---
Date of Procedure: 02/17/19 Preoperative Diagnosis: #1. Previous section, requesting repeat #2. Gestational diabetes Postoperative Diagnosis: Same Procedure(s) Performed: #1. Repeat low transverse section Anesthesia: spinal Surgeon: Manish Smith Water Mangle Tender #1: Martina He Estimated Blood Loss (ml): 500 IV fluids (ml): 1,100 Urine output (ml): 100 Pathology: other (Placenta) Condition: stable Disposition: floor Operative Findings: Preoperatively, the patient been thoroughly counseled regarding the procedure and agreed to proceed. She was taken the operating room where she was delivered of a viable 7 lbs. 12 oz. baby boy with Apgars of 3 at 1 minute, 6 at 5 minutes, and 7 at 10 minutes. The was delivered in the occiput anterior position with the help of a mighty Vac vacuum secondary to the angle of the pelvis and the head floating well above the pelvis. cord blood was collected per routine with the kit provided by the patient. The placenta was delivered manually, intact, and grossly normal with a grossly normal three-vessel cord. The uterus, tubes, and ovaries were entirely normal to inspection. Description of Procedure: The patient was prepped and draped in usual fashion after spinal anesthesia was administered by the anesthesiologist. A Pfannenstiel incision was made through pre-existing scar and extended into the abdominal cavity without difficulty. There was only a mild amount of scarring at the level of the fascia and subcutaneous tissues. The bladder peritoneum was elevated, incised, and reflected distally. A 2 cm incision was made in the transverse plane of the lower uterine segment to enter the uterus at which time clear fluid was noted. There was a moderate to significant amount of fluid. The incision was extended in both directions using the bandage scissors. The head was encountered floating in the pelvis and attempts to deliver the head in standard fashion were very difficult secondary to the head floating and the angle the pelvis. As result, a mighty Vac vacuum was affixed to the occiput of the at which time the head was able to be delivered up and through the incision where the nose and mouth were thoroughly suctioned. Remainder of the infant was delivered onto the field where the cord was doubly clamped, cut, and the infant passed for resuscitative measures with weight and Apgars as noted above. The umbilical cord was then prepped sterilely and cord blood taken for standard instructions the included in the kit provided by the patient. Once the entire volume of cord blood had been collected, the kit was closed appropriately and set aside. The placenta was delivered manually and intact as noted above there was a portion of the placenta lodged into the right cornu of the uterus which was ultimately removed. The uterus was exteriorized and the interior cavity of the uterus swept of any remaining placental or membranous fragments. The margins of the incision were grasped with Arceo clamps and the incision was closed in 2 layers. The first layer was a running locking stitch of 0 chromic catgut followed by a running imbricating layer of 0 chromic catgut. Any small points of bleeding thereafter made hemostatic with the Bovie. The posterior cul-de-sac was suctioned using a guard and the uterine and ovarian findings were normal as noted above. The uterus was replaced within the abdominal cavity and the gutters swept of any remaining blood, fluid, or clot. The incision was reexamined and again, any small points of bleeding were made hemostatic with the Bovie. Once hemostasis was established, the parietal peritoneum was loosely reapproximated and layer of muscles examined and found to be hemostatic. The fascia was closed with 2 running stitches of 0 Vicryl proceeding from the lateral margins to the midpoint. The subcutaneous tissues were irrigated, made hemostatic with the Bovie, and reapproximated with a running stitch of 3-0 chromic catgut. The skin was retracted approximate with a running subcuticular stitch of 4-0 Vicryl followed by half-inch Steri-Strips placed with Mastisol. Estimated blood loss for the case was approximate 500 mL. There were no complications and there is no apparent explanation for the infant's initial difficulties with breathing spontaneously. All sponge, instrument, and needle counts were correct. Both mother and are now resting comfortably in recovery though the remains in the special care nursery for close observation.
[2019-02-17 18:31] LABS: Hemoglobin A1C 5.2 % (4.0-6.0)
[2019-02-18] MEDS: SENNOSIDES-DOCUSATE SODIUM 1 EACH TAB PO SCH ×3 (04:06→17:00)
[2019-02-18 06:32] LABS: Basophils % (A) 0 %; Eosinophils # (A) 0.1 k/uL (0-0.7); Eosinophils % (A) 1 %; HCT 31.4 % (34.0-46.0); HGB 10.4 gm/dL (11.4-16.0); Lymphocytes # (A) 1.8 k/uL (1.0-4.8); Lymphocytes % (A) 17 %; MCH 31.2 pg (25.0-35.0); MCV 94.7 fL (80.0-100.0); Mean Platelet Volume 8.5; Monocytes # (A) 0.4 k/uL (0-1.0); Monocytes % (A) 4 %; Neutrophils % (A) 77 %; Platelet Count 163 k/uL (150-450); RBC 3.32 m/uL (3.80-5.40); WBC 10.3 k/uL (3.8-10.6)
--- NOTE | 2019-02-18 10:23 | P.PNOBGPC ---
Subjective - Subjective Patient reports: Reports appetite normal, Reports voiding normally, Reports pain well controlled, Reports ambulating normally : doing well, in NICU (for supplemental oxygen currently.) Objective - Vital Signs Latest vital signs: Vital Signs Temp Pulse Resp BP Pulse Ox 02/18/19 08:00 98 F 83 16 105/62 98 02/18/19 04:00 98.2 F 68 16 106/68 02/18/19 03:00 16 02/18/19 01:00 16 02/18/19 00:00 98.0 F 75 16 100/80 100 02/17/19 23:00 16 02/17/19 21:00 16 02/17/19 20:00 98.0 F 72 18 97/82 02/17/19 19:00 16 02/17/19 17:59 98 02/17/19 17:00 16 02/17/19 15:59 16 02/17/19 15:00 68 16 110/52 100 02/17/19 14:30 68 16 102/51 100 02/17/19 14:00 97.1 F L 61 16 113/57 100 02/17/19 13:59 16 98 02/17/19 13:45 65 16 123/60 100 02/17/19 13:30 65 16 125/65 100 02/17/19 13:15 68 16 125/69 98 02/17/19 13:00 96.6 F L 71 16 120/60 100 02/17/19 12:59 16 100 02/17/19 10:29 97.7 F 77 16 125/62 99 Intake and Output 02/17/19 02/18/19 02/18/19 22:59 06:59 14:59 Intake Total 100 Output Total 600 900 Balance -500 -900 Intake: Oral 100 Output: Urine 600 900 Uretheral ([place]) 300 Other: Voiding Method Indwelling Catheter # Voids 2 2 - Exam Extremities: Present: normal Abdomen: Present: normal appearance, soft. Absent: distention, tenderness Incision: Present: normal, dry, intact Uterus: Present: normal, firm (the uterine fundus is tonic and appropriately tender below the umbilicus.) - Labs Labs: Abnormal Lab Results - Last 24 Hours (Table) 02/17/19 02/18/19 Range/Units 11:18 06:21 RBC 3.32 L (3.80-5.40) m/uL Hgb 10.4 L (11.4-16.0) gm/dL Hct 31.4 L (34.0-46.0) % Neutrophils # 8.0 H (1.3-7.7) k/uL POC Glucose (mg/dL) 73 L (75-99) mg/dL Assessment and Plan (1) Previous section Current Visit: Yes Status: Acute Code(s): Z98.891 - HISTORY OF UTERINE SCAR FROM PREVIOUS SURGERY SNOMED Code(s): 118209743 (2) Term Current Visit: Yes Status: Acute Code(s): Z34.80 - ENCOUNTER FOR SUPRVSN OF NORMAL , UNSP TRIMESTER SNOMED Code(s): 36731893 (3) S/P section Current Visit: Yes Status: Acute Code(s): Z98.89 - OTHER SPECIFIED POSTPROCEDURAL STATES * DO NOT USE * SNOMED Code(s): 170810433 Plan: continue routine postoperative care. I have encouraged the patient amulet in the hallways routinely. She is otherwise performing all activities of daily living and her pain is well controlled at this time. Discharge will likely be dependent upon the length of stay for her .
--- NOTE | 2019-02-18 10:38 | P.PN ---
Progress Note - Text Progress Note Date: 02/18/19 Patient doing well. Ambulating without paresthesia or weakness. Denies headache. Pain controlled. Pruritis treated. VSS Back - spinal site c/d A/P POD#1 s/p - doing well
[2019-02-18] MEDS: LACTATED RINGERS 1,000 ML IV SCH ×4 (12:05→20:44)
[2019-02-18] MEDS: IBUPROFEN 600 MG TAB PO PRN ×2 (14:19→20:31)
[2019-02-18] MEDS: SIMETHICONE 80 MG CHEWABLE PO PRN (20:32)
[2019-02-19] MEDS: SIMETHICONE 80 MG CHEWABLE PO PRN ×2 (00:46→13:53)
[2019-02-19] MEDS: IBUPROFEN 600 MG TAB PO PRN ×4 (02:44→20:47)
[2019-02-19] MEDS: SENNOSIDES-DOCUSATE SODIUM 1 EACH TAB PO SCH (08:12)
--- NOTE | 2019-02-19 08:23 | P.PNOBGPC ---
Subjective - Subjective Principal diagnosis: postop day 2 Interval history: feeling well, pain controlled with oral pain medications. Patient reports: Reports appetite normal, Reports voiding normally, Reports pain well controlled, Reports ambulating normally, Denies dizzy ambulation [place]: in NICU Objective - Vital Signs Latest vital signs: Vital Signs Temp Pulse Resp BP Pulse Ox 02/18/19 23:16 98.5 F 84 16 102/57 98 02/18/19 16:00 97.8 F 67 18 127/74 02/18/19 12:00 98.4 F 76 16 104/58 98 Intake and Output 02/18/19 02/19/19 02/19/19 22:59 06:59 14:59 Other: # Voids 2 2 - Exam Extremities: Present: normal. Absent: edema Abdomen: Present: normal appearance, soft. Absent: distention, tenderness Incision: Present: normal, dry, intact. Absent: erythematous, edematous Uterus: Present: normal, firm Assessment and Plan (1) Previous section Current Visit: Yes Status: Acute Code(s): Z98.891 - HISTORY OF UTERINE SCAR FROM PREVIOUS SURGERY SNOMED Code(s): 013165773 (2) Term Current Visit: Yes Status: Acute Code(s): Z34.80 - ENCOUNTER FOR SUPRVSN OF NORMAL , UNSP TRIMESTER SNOMED Code(s): 44520609 (3) Gestational diabetes Current Visit: Yes Status: Acute Code(s): O24.419 - GESTATIONAL DIABETES MELLITUS IN , UNSP CONTROL SNOMED Code(s): 21858569 Plan: postoperative days 2 status post repeat low transverse section. in the special care nursery for possible pneumonia. She is pumping without difficulty and recovering well otherwise. Routine care.
[2019-02-20] MEDS: SENNOSIDES-DOCUSATE SODIUM 1 EACH TAB PO SCH ×2 (05:05→08:43)
[2019-02-20] MEDS: IBUPROFEN 600 MG TAB PO PRN ×3 (06:20→21:15)
--- NOTE | 2019-02-20 10:38 | P.PNOBGPC ---
Subjective - Subjective Principal diagnosis: postop day 3 Interval history: feeling well Patient reports: Reports appetite normal, Reports voiding normally, Reports pain well controlled, Reports ambulating normally [place]: doing well, in NICU Objective - Vital Signs Latest vital signs: Vital Signs Temp Pulse Resp BP Pulse Ox 02/20/19 08:00 98.9 F 62 15 133/76 100 02/20/19 00:00 98.2 F 64 16 117/72 02/19/19 16:00 98 F 72 15 119/74 98 - Exam Abdomen: Present: normal appearance, soft. Absent: distention, tenderness Incision: Present: normal, dry, intact. Absent: erythematous Uterus: Present: normal, firm. Absent: tenderness Assessment and Plan (1) Previous section Current Visit: Yes Status: Acute Code(s): Z98.891 - HISTORY OF UTERINE SCAR FROM PREVIOUS SURGERY SNOMED Code(s): 061903802 (2) Term Current Visit: Yes Status: Acute Code(s): Z34.80 - ENCOUNTER FOR SUPRVSN OF NORMAL , UNSP TRIMESTER SNOMED Code(s): 65388354 (3) Gestational diabetes Current Visit: Yes Status: Acute Code(s): O24.419 - GESTATIONAL DIABETES MELLITUS IN , UNSP CONTROL SNOMED Code(s): 85347716 Plan: postop day 3 status post repeat low transverse section. Recovering well. Anticipate discharge home tomorrow.
[2019-02-20] MEDS: ACETAMINOPHEN TAB 325 MG TAB PO PRN (18:21)
[2019-02-21] MEDS: SENNOSIDES-DOCUSATE SODIUM 1 EACH TAB PO SCH ×2 (01:29→08:12)
[2019-02-21] MEDS: ACETAMINOPHEN TAB 325 MG TAB PO PRN (01:37)
[2019-02-21] MEDS: IBUPROFEN 600 MG TAB PO PRN ×2 (08:11→14:43)
[2019-02-21 08:16] VITALS: RESP 17; TEMP 97.9
--- NOTE | 2019-02-21 08:56 | P.DS ---
Providers Date of admission: 02/17/19 10:17 Expected date of discharge: 02/21/19 Attending physician: Manish Smith Primary care physician: Sandy Felton - Discharge Diagnosis(es) (1) Previous section Current Visit: Yes Status: Acute (2) Term Current Visit: Yes Status: Acute (3) S/P section Current Visit: Yes Status: Acute Hospital Course: the patient is a 33-year-old 2 para 1001 admitted at 39-2/7 weeks by good dating parameters. She is admitted for repeat low transverse section. Her has been complicated by gestational diabetes for which she had only moderate blood sugar control. Group B strep status is negative. On labor and delivery, she was taken the operating room where she underwent repeat low transverse section in a uncomplicated fashion and was delivered of a viable 7 lbs. 12 oz. baby boy with Apgars of 3 at 1 minute 6 at 5 minutes and 7 at 10 minutes. For reasons that are unclear, the had initial problems with breathing and was ultimately taken to the special care nursery where he remains today with for ongoing treatment though he is improving. The patient's postoperative course was essentially unremarkable vital signs remaining stable and her temperature was afebrile throughout. She was deemed stable for discharge on day number for an postoperative day #4. She was discharged home to follow-up in the office in 2 weeks for incision check and 6 weeks routinely. Discharge instructions included calling for any significantly increased bleeding or foul-smelling lochia, significantly increased fever abdominal pain, perineal complaints, breast complaints, incisional complaints, or anything else that concerned her. She was additionally instructed to have nothing in the vagina for at least 6 weeks time to include intercourse and to abstain from any heavy lifting over the same period of time. She was lastly instructed to do no driving until off of all pain medications or 2 weeks' time, whichever came first. She understood her instructions and agrees follow up as noted above. Discharge medications included only [id number] analgesic pain medications as she declines any narcotic medications. Maternal blood type is A+ and rubella status is immune. Discharge hemoglobin and hematocrit were10.4 and 31.4 respectively. Procedures: #1. Repeat low transverse section Patient Condition at Discharge: Good Plan - Discharge Summary Discharge Rx Participant: No New Discharge Prescriptions: No Action Levothyroxine Sodium [Synthroid] 75 mcg PO DAILY Pnv,Calcium 72/Iron/Folic Acid [ Plus Tablet] 1 tab PO HS Sertraline [Zoloft] 150 mg PO DAILY Ferrous Sulfate [Feosol] 325 mg PO HS Discharge Medication List Levothyroxine Sodium [Synthroid] 75 mcg PO DAILY 11/11/14 [History] Pnv,Calcium 72/Iron/Folic Acid [ Plus Tablet] 1 tab PO HS 11/11/14 [History] Ferrous Sulfate [Feosol] 325 mg PO HS 01/06/19 [History] Sertraline [Zoloft] 150 mg PO DAILY 01/06/19 [History] Follow up Appointment(s)/Referral(s): Manish Smith MD [STAFF PHYSICIAN] - 1 Week Discharge Disposition: HOME SELF-CARE
[2019-02-21 15:17] VITALS: BP 135/68; PULSE 70
== END 2019-02-21 21:44 | disposition home or self-care (01) | DRG 788 ==
LOC: 4FBP 10:17
PROVIDERS: ADMIT Obstetrics & Gynecology; ATTEND Obstetrics & Gynecology
PROC: 10D00Z1 Extraction of Products of Conception, Low, Open Approach (ICD-10-PCS; principal; 2019-02-17 12:00)
DX: O34.211 Maternal care for low transverse scar from previous cesarean delivery (principal); O24.429 Gestational diabetes mellitus in childbirth, unspecified control; O99.62 Diseases of the digestive system complicating childbirth; O99.284 Endocrine, nutritional and metabolic diseases complicating childbirth; O99.344 Other mental disorders complicating childbirth; K21.9 Gastro-esophageal reflux disease without esophagitis; N85.8 Other specified noninflammatory disorders of uterus; E78.5 Hyperlipidemia, unspecified; E03.9 Hypothyroidism, unspecified; F32.9 Major depressive disorder, single episode, unspecified; L29.9 Pruritus, unspecified; Z3A.39 39 weeks gestation of pregnancy; Z37.0 Single live birth; Z79.890 Hormone replacement therapy; Z79.899 Other long term (current) drug therapy; Z98.890 Other specified postprocedural states; Z87.442 Personal history of urinary calculi; Z86.69 Personal history of other diseases of the nervous system and sense organs; Z88.8 Allergy status to other drugs, medicaments and biological substances; Z83.2 Family history of diseases of the blood and blood-forming organs and certain disorders involving the immune mechanism; Z82.49 Family history of ischemic heart disease and other diseases of the circulatory system; Z80.9 Family history of malignant neoplasm, unspecified
CPT/HCPCS: 83036; 85025; 86850; 86900; 86901; 88307

== ENCOUNTER 2019-02-22 14:28 | Emergency (ER) | payer BC ==
[2019-02-22 14:36] VITALS: TEMP 98
--- NOTE | 2019-02-22 15:15 | ED ---
SOB HPI - General Chief Complaint: Shortness of Breath Stated Complaint: SANTOS, C section 5 days ago, chest pain, back pain Time Seen by Provider: 02/22/19 14:46 Source: patient Mode of arrival: ambulatory Limitations: no limitations - History of Present Illness Initial Comments: Patient is a 33-year-old female presenting to the emergency Department with complaints of shortness of breath that has been increasing since yesterday. Patient recently had a [address] Smith. and were uncomplicated. During hospital stay patient developed chest pain that was worked up in no acute findings were found. They told her it could be a muscle related or anxiety. Patient states she was discharged from the hospital yesterday but returns today for increasing shortness of breath with activity as well as intermittent chest pain that she describes as sharp in nature. Patient states his episodes last for a couple minutes. Patient is not currently having chest pain. Patient states she has been eating and drinking as normal. Patient states she did call her [employer]IST today who recommended coming to the ER for evaluation. Patient denies history of DVT or PE, or heart disease. Patient denies fever, chills, nausea, vomiting. Patient has no other complaints at this time. Upon arrival to the ER, vital signs are stable. - Related Data Home Medications Medication Instructions Recorded Confirmed Levothyroxine Sodium [Synthroid] 75 mcg PO DAILY 11/11/14 02/22/19 Pnv,Calcium 72/Iron/Folic Acid 1 tab PO DAILY 11/11/14 02/22/19 [ Plus Tablet] Ferrous Sulfate [Feosol] 325 mg PO HS 01/06/19 02/22/19 Sertraline [Zoloft] 150 mg PO DAILY 01/06/19 02/22/19 Allergies Allergy/AdvReac Type Severity Reaction Status Date / Time butorphanol [From Stadol] Allergy PASSED OUT Verified 02/22/19 17:39 Review of Systems ROS Statement: Those systems with pertinent positive or pertinent negative responses have been documented in the HPI. ROS Other: All systems not noted in ROS Statement are negative. Past Medical History Past Medical History: GERD/Reflux, Hyperlipidemia, Thyroid Disorder Additional Past Medical History / Comment(s): migraines, refux during , diarrhea, hx kidney stones during pregnacy History of Any Multi-Drug Resistant Organisms: None Reported Past Surgical History: Breast Surgery, Section Additional Past Surgical History / Comment(s): rodrigue breast reduction, carpal tunnel surgery Past Anesthesia/Blood Transfusion Reactions: Motion Sickness Additional Past Anesthesia/Blood Transfusion Reaction / Comment(s): had epidural for C/S- "had cholinergic episode requiring atropine during epidural". was unresponsive and slept right through labor. possibly from stadol per pt. Past Psychological History: Depression Smoking Status: Never smoker Past Alcohol Use History: None Reported Past Drug Use History: None Reported - Past Family History Mother Family Medical History: No Reported History Father Family Medical History: Cancer, Deep Vein Thrombosis (DVT), Myocardial Infarction ([place]) Additional Family Medical History / Comment(s): . General Exam - General Exam Comments Initial Comments: GENERAL: Well-appearing, well-nourished and in no acute distress. HEAD: Atraumatic, normocephalic. EYES: Pupils equal round and reactive to light, extraocular movements intact, sclera anicteric, conjunctiva are normal. ENT: TMs normal, nares patent, oropharynx clear without exudates. Moist mucous membranes. NECK: Normal range of motion, supple without lymphadenopathy or JVD. LUNGS: Breath sounds clear to auscultation bilaterally and equal. No wheezes rales or rhonchi. HEART: Regular rate and rhythm without murmurs, rubs or gallops. ABDOMEN: Soft, nontender, normoactive bowel sounds. No guarding, no rebound. No masses appreciated. There is a suprapubic incision from a recent . Incision is clean, dry, intact, no signs of infection. : Deferred EXTREMITIES: Normal range of motion, no pitting or edema. No clubbing or cyanosis. NEUROLOGICAL: Cranial nerves II through XII grossly intact. Normal speech, normal gait. PSYCH: Normal mood, normal affect. SKIN: Warm, Dry, normal turgor, no rashes or lesions noted. Limitations: no limitations Course Vital Signs 02/22/19 02/22/19 02/22/19 14:32 15:26 15:30 Temperature 98 F Pulse Rate 72 57 L 60 Respiratory 18 20 18 Rate Blood Pressure 128/81 130/88 O2 Sat by Pulse 98 98 98 Oximetry 02/22/19 02/22/19 02/22/19 15:33 16:00 16:30 Temperature Pulse Rate Respiratory 20 20 Rate Blood Pressure 120/79 120/79 O2 Sat by Pulse 98 98 Oximetry 02/22/19 02/22/19 02/22/19 17:00 17:30 18:00 Temperature Pulse Rate Respiratory 20 20 Rate Blood Pressure 122/71 140/92 O2 Sat by Pulse 98 98 97 Oximetry 02/22/19 18:14 Temperature Pulse Rate Respiratory 20 Rate Blood Pressure O2 Sat by Pulse Oximetry Medical Decision Making - Medical Decision Making Patient is a 33-year-old female presenting for shortness of breath as well as intermittent chest pain since yesterday. Patient had 5 days ago. No history of DVT, PE, heart disease. D-dimer was 3.89, troponin is normal. Rest of lab work shows no acute abnormalities. Chest x-ray shows no acute abnormalities. Chest CTA shows no acute process. EKG was normal. I discussed these findings with the patient. Patient is stable for discharge at this time. Patient will follow up with her PCP if symptoms persist. Patient is agreement with this plan of care. Return parameters were discussed with the patient and she verbalized understanding. Case discussed with Dr. Verma. - Lab Data Result diagrams: 02/22/19 15:20 02/22/19 15:20 Lab Results 02/22/19 02/22/19 02/22/19 Range/Units 15:20 15:20 15:20 WBC 9.4 (3.8-10.6) k/uL RBC 4.04 (3.80-5.40) m/uL Hgb 12.8 (11.4-16.0) gm/dL Hct 38.3 (34.0-46.0) % MCV 95.0 (80.0-100.0) fL MCH 31.8 (25.0-35.0) pg MCHC 33.5 (31.0-37.0) g/dL RDW 14.4 (11.5-15.5) % Plt Count 295 (150-450) k/uL Neutrophils % 64 % Lymphocytes % 30 % Monocytes % 3 % Eosinophils % 2 % Basophils % 0 % Neutrophils # 6.0 (1.3-7.7) k/uL Lymphocytes # 2.8 (1.0-4.8) k/uL Monocytes # 0.3 (0-1.0) k/uL Eosinophils # 0.2 (0-0.7) k/uL Basophils # 0.0 (0-0.2) k/uL PT 9.3 (9.0-12.0) sec INR 0.8 (<1.2) APTT 23.6 (22.0-30.0) sec D-Dimer 3.89 H (<0.60) mg/L FEU Sodium 142 (137-145) mmol/L Potassium 4.4 (3.5-5.1) mmol/L Chloride 106 (98-107) mmol/L Carbon Dioxide 26 (22-30) mmol/L Anion Gap 10 mmol/L BUN 22 H (7-17) mg/dL Creatinine 0.88 (0.52-1.04) mg/dL Est GFR (CKD-EPI)AfAm >90 (>60 ml/min/1.73 sqM) Est GFR (CKD-EPI)NonAf 87 (>60 ml/min/1.73 sqM) Glucose 85 (74-99) mg/dL Calcium 10.0 (8.4-10.2) mg/dL Total Bilirubin 0.4 (0.2-1.3) mg/dL AST 27 (14-36) U/L ALT 19 (4-34) U/L Alkaline Phosphatase 132 H (38-126) U/L Troponin I (0.000-0.034) ng/mL Total Protein 6.9 (6.3-8.2) g/dL Albumin 3.9 (3.5-5.0) g/dL Urine Color Urine Appearance (Clear) Urine pH (5.0-8.0) Ur Specific [place] (1.001-1.035) Urine Protein (Negative) Urine Glucose (UA) (Negative) Urine Ketones (Negative) Urine Blood (Negative) Urine Nitrite (Negative) Urine Bilirubin (Negative) Urine Urobilinogen (<2.0) mg/dL Ur Leukocyte Esterase (Negative) Urine RBC (0-5) /hpf Urine WBC (0-5) /hpf Ur Squamous Epith Cells (0-4) /hpf 02/22/19 02/22/19 Range/Units 15:20 15:20 WBC (3.8-10.6) k/uL RBC (3.80-5.40) m/uL Hgb (11.4-16.0) gm/dL Hct (34.0-46.0) % MCV (80.0-100.0) fL MCH (25.0-35.0) pg MCHC (31.0-37.0) g/dL RDW (11.5-15.5) % Plt Count (150-450) k/uL Neutrophils % % Lymphocytes % % Monocytes % % Eosinophils % % Basophils % % Neutrophils # (1.3-7.7) k/uL Lymphocytes # (1.0-4.8) k/uL Monocytes # (0-1.0) k/uL Eosinophils # (0-0.7) k/uL Basophils # (0-0.2) k/uL PT (9.0-12.0) sec INR (<1.2) APTT (22.0-30.0) sec D-Dimer (<0.60) mg/L FEU Sodium (137-145) mmol/L Potassium (3.5-5.1) mmol/L Chloride (98-107) mmol/L Carbon Dioxide (22-30) mmol/L Anion Gap mmol/L BUN (7-17) mg/dL Creatinine (0.52-1.04) mg/dL Est GFR (CKD-EPI)AfAm (>60 ml/min/1.73 sqM) Est GFR (CKD-EPI)NonAf (>60 ml/min/1.73 sqM) Glucose (74-99) mg/dL Calcium (8.4-10.2) mg/dL Total Bilirubin (0.2-1.3) mg/dL AST (14-36) U/L ALT (4-34) U/L Alkaline Phosphatase (38-126) U/L Troponin I <0.012 (0.000-0.034) ng/mL Total Protein (6.3-8.2) g/dL Albumin (3.5-5.0) g/dL Urine Color Light Yellow Urine Appearance Clear (Clear) Urine pH 6.5 (5.0-8.0) Ur Specific [place] 1.007 (1.001-1.035) Urine Protein Negative (Negative) Urine Glucose (UA) Negative (Negative) Urine Ketones Negative (Negative) Urine Blood Moderate H (Negative) Urine Nitrite Negative (Negative) Urine Bilirubin Negative (Negative) Urine Urobilinogen <2.0 (<2.0) mg/dL Ur Leukocyte Esterase Moderate H (Negative) Urine RBC 114 H (0-5) /hpf Urine WBC 12 H (0-5) /hpf Ur Squamous Epith Cells 1 (0-4) /hpf - EKG Data EKG Comments: Ventricular rate 59, P or interval 114, QTC 376. Sinus bradycardia with sinus arrhythmia. No acute ST segment changes. Disposition Clinical Impression: Shortness of breath Disposition: HOME SELF-CARE Condition: Stable Instructions (If sedation given, give patient instructions): Shortness of Breath (ED) Additional Instructions: Please return to the Emergency Department if symptoms worsen or any other concerns. Follow-up with PCP. Is patient prescribed a controlled substance at d/c from ED?: No Referrals: Sandy Felton MD [Primary Care Provider] - 1-2 days
[2019-02-22 15:33] VITALS: RESP 20
[2019-02-22 15:34] VITALS: PULSE 60
[2019-02-22 15:37] LABS: Basophils % (A) 0 %; Eosinophils # (A) 0.2 k/uL (0-0.7); Eosinophils % (A) 2 %; HCT 38.3 % (34.0-46.0); HGB 12.8 gm/dL (11.4-16.0); Lymphocytes # (A) 2.8 k/uL (1.0-4.8); Lymphocytes % (A) 30 %; MCH 31.8 pg (25.0-35.0); MCHC 33.5 g/dL (31.0-37.0); Monocytes # (A) 0.3 k/uL (0-1.0); Monocytes % (A) 3 %; Neutrophils % (A) 64 %; Platelet Count 295 k/uL (150-450); RBC 4.04 m/uL (3.80-5.40); RDW 14.4 % (11.5-15.5); WBC 9.4 k/uL (3.8-10.6)
[2019-02-22 15:43] LABS: Appearance,Urine Clear (Clear); Bilirubin,Urine Negative (Negative); Blood,Urine Moderate (Negative); Color,Urine Light Yellow; Glucose,Urine (UA) Negative (Negative); Ketones,Urine Negative (Negative); Leukocyte Esterase,Urine Moderate (Negative); Nitrite,Urine Negative (Negative); PH, Urine 6.5 (5.0-8.0); Protein,Urine Negative (Negative); RBC,Urine 114 /hpf (0-5); Specific Gravity,Urine 1.007 (1.001-1.035); Squamous Epithelial Cell,Urine 1 /hpf (0-4); Urobilinogen,Urine <2.0 mg/dL (<2.0); WBC,Urine 12 /hpf (0-5)
[2019-02-22 15:46] LABS: ALT 19 U/L (4-34); AST 27 U/L (14-36); African American GFR (CKD) >90 (>60 ml/min/1.73 sqM); Albumin 3.9 g/dL (3.5-5.0); Alkaline Phosphatase 132 U/L (38-126); Anion Gap 10 mmol/L; Blood Urea Nitrogen 22 mg/dL (7-17); Carbon Dioxide 26 mmol/L (22-30); Chloride 106 mmol/L (98-107); Glucose 85 mg/dL (74-99); Non-African American GFR(CKD) 87 (>60 ml/min/1.73 sqM); Potassium 4.4 mmol/L (3.5-5.1); Sodium 142 mmol/L (137-145); Total Bilirubin 0.4 mg/dL (0.2-1.3); Total Protein 6.9 g/dL (6.3-8.2)
--- NOTE | 2019-02-22 15:46 | XR ---
EXAMINATION TYPE: XR chest 2V DATE OF EXAM: 02/22/2019 COMPARISON: NONE HISTORY: Difficulty breathing and chest pain. TECHNIQUE: Frontal and lateral views of the chest are obtained. FINDINGS: Overlying EKG leads. There is no focal air space opacity, pleural effusion, or pneumothorax seen. The cardiac silhouette size is within normal limits. The osseous structures are intact. IMPRESSION: No acute cardiopulmonary process.
[2019-02-22 15:59] LABS: INR 0.8 (<1.2); Partial Thromboplastin Time 23.6 sec (22.0-30.0); Prothrombin Time 9.3 sec (9.0-12.0)
[2019-02-22 16:26] LABS: D-Dimer 3.89 mg/L FEU (<0.60)
--- NOTE | 2019-02-22 17:50 | CT ---
EXAMINATION TYPE: CT chest angio for PE w con and with 3-D reconstruction renderings. DATE OF EXAM: 02/22/2019 COMPARISON: None HISTORY: Shortness of breath. C section [address] DLP: 291.8 mGycm Automated exposure control for dose reduction was used. CONTRAST: CT Chest for pulmonary embolism performed with with IV Contrast, patient injected with 100 mL of Isovue 370. Three-D reconstructions. FINDINGS: LUNGS: The lungs are grossly clear, there is no concerning parenchymal mass or nodule identified. T here is no pleural effusion or pneumothorax seen. The tracheobronchial tree is patent. MEDIASTINUM: There is satisfactory enhancement of the pulmonary artery and its branches, with no CT e vidence for pulmonary embolism. There are no acute aortic findings. No cardiomegaly or pericardial ef fusion. There are no greater than 1 cm hilar or mediastinal lymph nodes. OTHER: No additional significant abnormality is seen. IMPRESSION: No acute process.
[2019-02-22 18:10] VITALS: BP 140/92
== END 2019-02-22 18:18 | disposition home or self-care (01) ==
LOC: EC 14:28
DX: R06.02 Shortness of breath (principal); R07.9 Chest pain, unspecified; R06.00 Dyspnea, unspecified; E07.9 Disorder of thyroid, unspecified; F32.9 Major depressive disorder, single episode, unspecified; Z79.899 Other long term (current) drug therapy; Z88.8 Allergy status to other drugs, medicaments and biological substances
CPT/HCPCS: 36415; 93005; 85379; 80053; 84484; 85025; 85610; 85730; 81001; 87086; 71046; 71275; 99285; Q9967

== ENCOUNTER 2020-08-24 17:30 | Emergency (ER) | payer BC, OTHER ==
[2020-08-24 17:44] VITALS: BP 119/80; PULSE 101; RESP 18; TEMP 98.4
[2020-08-24] MEDS ORDERED: RABIES IMMUNE GLOB 300 UNIT/ML 1 ML VIAL IM ONE (18:14)
[2020-08-24] MEDS ORDERED: AMOXIC-POT CLAV 875-125MG 1 EACH TAB PO STA (18:14)
[2020-08-24] MEDS ORDERED: RABIES VACCINE (PCEC) 2.5 UNIT KIT IM ONE (18:15)
[2020-08-24] MEDS ORDERED: RABIES IMMUNE GLOB 300 UNIT/ML 5 ML VIAL IM ONE (18:30)
--- NOTE | 2020-08-24 19:01 | ED ---
Animal Bite HPI - General Chief Complaint: Animal Bite Stated Complaint: Dog bite, arm & knee, [facility] Time Seen by Provider: 08/24/20 17:57 Source: patient, EMS Mode of arrival: ambulatory Limitations: no limitations - History of Present Illness Initial Comments: 35-year-old female presents to the emergency department with chief complaint of a dog bite that occurred about one hour prior to arrival. Patient reports her tetanus is up-to-date. States she was bitten on the right knee. States she thoroughly washed out the wound with soapy water. 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 Patient otherwise reports full range of motion but states there is pain where the skin break is occurring. Reports minimal bleeding from the site. Denies any paresthesias or limited range of motion in the extremity. Patient is unsure whether the dog had rabies vaccination. - Related Data Home Medications Medication Instructions Recorded Confirmed Levothyroxine Sodium [Synthroid] 75 mcg PO DAILY 11/11/14 02/22/19 Pnv,Calcium 72/Iron/Folic Acid 1 tab PO DAILY 11/11/14 02/22/19 [ Plus Tablet] Ferrous Sulfate [Feosol] 325 mg PO HS 01/06/19 02/22/19 Sertraline [Zoloft] 150 mg PO DAILY 01/06/19 02/22/19 Previous Rx's Medication Instructions Recorded Amoxicillin/Potassium Clav 1 tab PO Q12HR #20 tab 08/24/20 [Augmentin 875-125 Tablet] Allergies Allergy/AdvReac Type Severity Reaction Status Date / Time butorphanol [From Stadol] Allergy PASSED OUT Verified 08/24/20 17:44 lamotrigine [From Lamictal] Allergy Rash/Hives Verified 08/24/20 17:45 Review of Systems ROS Statement: Those systems with pertinent positive or pertinent negative responses have been documented in the HPI. ROS Other: All systems not noted in ROS Statement are negative. Past Medical History Past Medical History: GERD/Reflux, Hyperlipidemia, Thyroid Disorder Additional Past Medical History / Comment(s): migraines, refux during , diarrhea, hx kidney stones during pregnacy History of Any Multi-Drug Resistant Organisms: None Reported Past Surgical History: Breast Surgery, Section Additional Past Surgical History / Comment(s): rodrigue breast reduction, carpal tunnel surgery Past Anesthesia/Blood Transfusion Reactions: Motion Sickness Additional Past Anesthesia/Blood Transfusion Reaction / Comment(s): had epidural for C/S- "had cholinergic episode requiring atropine during epidural". was unresponsive and slept right through labor. possibly from stadol per pt. Past Psychological History: Depression Past Alcohol Use History: None Reported Past Drug Use History: None Reported - Past Family History Mother Family Medical History: No Reported History Father Family Medical History: Cancer, Deep Vein Thrombosis (DVT), Myocardial Infarction ([place]) Additional Family Medical History / Comment(s): . General Exam Limitations: no limitations General appearance: alert, in no apparent distress, obese Head exam: Present: atraumatic, normocephalic, normal inspection Eye exam: Present: normal appearance, PERRL, EOMI Pupils: Present: normal accommodation ENT exam: Present: normal exam, normal oropharynx, mucous membranes moist Neck exam: Present: normal inspection, full ROM. Absent: tenderness, meningismus Respiratory exam: Present: normal lung sounds bilaterally. Absent: respiratory distress Cardiovascular Exam: Present: regular rate, normal rhythm, normal heart sounds. Absent: systolic murmur Extremities exam: Present: normal inspection, full ROM, normal capillary refill. Absent: tenderness, pedal edema Back exam: Present: normal inspection, full ROM. Absent: tenderness Neurological exam: Present: alert, oriented X3 Psychiatric exam: Present: normal affect, normal mood Skin exam: Present: warm, dry, intact, normal color Course Vital Signs 08/24/20 17:40 Temperature 98.4 F Pulse Rate 101 H Respiratory 18 Rate Blood Pressure 119/80 O2 Sat by Pulse 99 Oximetry Medical Decision Making - Medical Decision Making 35-year-old female presents to the emergency department with a chief complaint of dog bite. On physical examination, 1 cm laceration on the anterior aspect of her right knee. She also has a small abrasion on the right proximal forearm. Patient reports some pain at the injury site. States she was thoroughly cleaned. I did perform additional irrigation with normal saline. Patient was given immunoglobulin directly into the wound site as well as I am into the arm. She was started on a vaccine for rabies. She will have to get another dose on day 3, 7, 14. Strict return problems with thoroughly discussed the patient was an ascending agreeable. Patient will also be started on Augmentin. Case discussed with Dr. Verma. Disposition Clinical Impression: Dog bite, Bite by animal Disposition: HOME SELF-CARE Condition: Stable Instructions (If sedation given, give patient instructions): Animal Bite (ED) Additional Instructions: Continue with the vaccine series for rabies. Take prescribed medication as directed. Return to emergency department is symptoms worsen. Prescriptions: Amoxicillin/Potassium Clav [Augmentin 875-125 Tablet] 1 tab PO Q12HR #20 tab Is patient prescribed a controlled substance at d/c from ED?: No Referrals: Sandy Felton MD [Primary Care Provider] - 1-2 days Time of Disposition: 19:01
== END 2020-08-24 19:32 | disposition home or self-care (01) ==
LOC: EC 17:30
DX: S81.051A Open bite, right knee, initial encounter (principal); E78.5 Hyperlipidemia, unspecified; F32.9 Major depressive disorder, single episode, unspecified; E07.9 Disorder of thyroid, unspecified; W54.0XXA Bitten by dog, initial encounter; Z87.442 Personal history of urinary calculi
CPT/HCPCS: 90375; 90675; 96372; 99282

== ENCOUNTER → 2020-09-28 | Outpatient (CLI) | payer BC ==
[2020-09-29 03:16] LABS: Follicle Stimulating Hormone 8.1 mIU/mL; Luteinizing Hormone 1.9 mIU/mL
[2020-09-29 03:48] LABS: Prolactin 83.1 ng/mL (2.8-29.2)
== END | disposition home or self-care (01) ==
LOC: LABWHC1 14:54
PROVIDERS: ATTEND Family Medicine
DX: N92.5 Other specified irregular menstruation (principal); R58 Hemorrhage, not elsewhere classified
CPT/HCPCS: 36415; 83001; 83002; 84146; 85384